=== PATIENT | male | born 1990 ===

== ENCOUNTER 2021-03-20 19:26 | Emergency (ER) | payer SELFPAY ==
[2021-03-20] MEDS ORDERED: diphenhydrAMINE 25 MG/10 ML ORAL LIQUID PO ONE (19:37)
[2021-03-20] MEDS ORDERED: diphenhydrAMINE 25 MG CAP PO ONE (19:39)
[2021-03-20] MEDS ORDERED: diphenhydrAMINE 25 MG/10 ML ORAL LIQUID ONE (19:45)
[2021-03-20] MEDS ORDERED: FAMOTIDINE 20 MG/2 ML INJ IV ONE (19:55)
[2021-03-20] MEDS ORDERED: ONDANSETRON 4 MG/2 ML INJ IV ONE (19:55)
[2021-03-20] MEDS ORDERED: diphenhydrAMINE 50 MG/ML VIAL IV ONE (19:55)
[2021-03-20] MEDS ORDERED: methylPREDNISolone Sod Succinate 125 MG/2 ML INJ IV ONE (19:56)
[2021-03-20] MEDS ORDERED: EPINEPHrine/PF 1 MG/1 ML INJ IM ONE (19:57)
--- NOTE | 2021-03-20 21:13 | Emergency Department Report ---
ED Allergic Reaction HPI - General Chief complaint: Allergic Reaction Stated complaint: ALLERGIC REACTION Source: patient Mode of arrival: Ambulatory Limitations: Language Barrier - History of Present Illness Initial Comments: Patient is a 30-year-old male with no past medical history presents to the ED with complaint of acute onset persistent diffuse itchy erythematous maculopapular urticarial rashes throughout with mild upper and lower lip swelling and throat tightness for the last 2 hours after being bitten by bees while mowing his lawn about 2 hours ago. Patient states that he was mowing the lawn when accidentally he may have stumbled upon a beehive and a few bees stung him on his thighs and subsequent developed diffuse itchy erythematous urticarial rashes with sweating and throat tightness. Patient states that he did not take any medication prior to arrival in the ED. Patient denies dizziness, syncope, chest pain, shortness of breath, swollen tongue, swollen throat, dysphagia, dysphonia, nasal and sinus congestion, cough, wheezing, nausea, vomiting, diarrhea or abdominal pain, fever and chills. MD Complaint: allergic reaction, hives, facial swelling, other (Tingling sensation on the throat) -: Sudden, hour(s) (2) Exposure: insect bite Symptoms: rash, itching, facial swelling, lip swelling, hoarseness. denies: difficulty swallowing, difficulty breathing, orolingual swelling, syncopy, dizziness, nausea, vomiting, other, abdominal pain Severity: severe Treatment Prior to Arrival: none Previous Allergy History: none - Related Data Previous Rx's Medication Instructions Recorded Last Taken Type Famotidine [Pepcid] 20 mg PO BID #60 tablet 03/20/21 Unknown Rx Prednisone [predniSONE 10 mg 10 mg PO .TAPER #21 tab.ds.pk 03/20/21 Unknown Rx (6-Day Pack, 21 Tabs)] diphenhydrAMINE [Benadryl CAP] 50 mg PO Q8HR PRN #30 capsule 03/20/21 Unknown Rx Allergies Allergy/AdvReac Type Severity Reaction Status Date / Time No Known Allergies Allergy Unverified 03/20/21 20:00 ED Review of Systems ROS: Stated complaint: ALLERGIC REACTION Other details as noted in HPI Constitutional: denies: chills, fever Eyes: denies: eye pain, eye discharge, vision change ENT: other (Mild facial and lip swelling and tightness; throat tightness). denies: ear pain, throat pain Respiratory: denies: cough, shortness of breath, wheezing Cardiovascular: denies: chest pain, palpitations Endocrine: no symptoms reported Gastrointestinal: denies: abdominal pain, nausea, vomiting, diarrhea Genitourinary: denies: urgency, dysuria Musculoskeletal: denies: back pain, joint swelling, arthralgia Skin: rash (Diffuse itchy erythematous maculopapular urticarial rashes), change in color, pruritus. denies: lesions Neurological: denies: headache, weakness, paresthesias Psychiatric: denies: anxiety, depression Hematological/Lymphatic: denies: easy bleeding, easy bruising ED Past Medical Hx - Medications Home Medications: Home Medications Medication Instructions Recorded Confirmed Last Taken Type Famotidine [Pepcid] 20 mg PO BID #60 tablet 03/20/21 Unknown Rx Prednisone [predniSONE 10 mg 10 mg PO .TAPER #21 tab.ds.pk 03/20/21 Unknown Rx (6-Day Pack, 21 Tabs)] diphenhydrAMINE [Benadryl CAP] 50 mg PO Q8HR PRN #30 capsule 03/20/21 Unknown Rx ED Physical Exam - General Limitations: Language Barrier General appearance: alert, in no apparent distress - Head Head exam: Present: atraumatic, normocephalic, normal inspection - Eye Eye exam: Present: normal appearance, PERRL, EOMI Pupils: Present: normal accommodation - ENT ENT exam: Present: normal orophraynx, mucous membranes moist, TM's normal bilaterally, normal external ear exam, other (Mild upper and lower lip swelling) - Neck Neck exam: Present: normal inspection, full ROM - Respiratory Respiratory exam: Present: normal lung sounds bilaterally. Absent: respiratory distress, wheezes, rales, rhonchi, stridor, chest wall tenderness, accessory muscle use, decreased breath sounds, prolonged expiratory - Cardiovascular Cardiovascular Exam: Present: regular rate, normal rhythm, normal heart sounds. Absent: systolic murmur, diastolic murmur, rubs, gallop - GI/Abdominal GI/Abdominal exam: Present: soft, normal bowel sounds. Absent: tenderness, guarding, hyperactive bowel sounds, hypoactive bowel sounds, organomegaly - Extremities Exam Extremities exam: Present: normal inspection, full ROM, normal capillary refill - Back Exam Back exam: Present: normal inspection, full ROM. Absent: tenderness, CVA tenderness (R), CVA tenderness (L), muscle spasm, paraspinal tenderness, vertebral tenderness - Neurological Exam Neurological exam: Present: alert, oriented X3, CN II-XII intact, normal gait, reflexes normal - Psychiatric Psychiatric exam: Present: normal affect, normal mood - Skin Skin exam: Present: warm, dry, intact, rash (Diffuse erythematous maculopapular urticarial rashes), erythema, urticaria ED Course Vital Signs 03/20/21 03/20/21 19:32 21:24 Temperature 97.4 F L Pulse Rate 96 H 94 H Respiratory 16 16 Rate Blood Pressure 135/80 Blood Pressure 109/57 [Left] O2 Sat by Pulse 96 98 Oximetry ED Medical Decision Making - Medical Decision Making This is a 30-year-old male with no past medical history presents to the ED with complaint of acute onset persistent diffuse itchy erythematous maculopapular urticarial rashes throughout with mild upper and lower lip swelling and throat tightness for the last 2 hours after being bitten by bees while mowing his lawn about 2 hours ago. Patient states that he was mowing the lawn when accidentally he may have stumbled upon a beehive and a few bees stung him on his thighs and subsequent developed diffuse itchy erythematous urticarial rashes with sweating and throat tightness. Patient states that he did not take any medication prior to arrival in the ED. in the ED, patient is alert and oriented x3 and is not in distress, anxious but hemodynamically stable in triage. Patient received treatment for acute allergic reaction with Solu-Medrol 125 mg IV x1, Benadryl 50 mg, Pepcid 20 mg and epinephrine 0.5 mg intramuscular injection. Patient was observed in the ED and monitored for 2 hours for any worsening symptoms. On reevaluation, patient's hives and itching resolved, the lip swelling and throat tightness also resolved. Patient's vital signs are stable on reevaluation. Patient was therefore discharged home on medications including steroids Dosepak, Benadryl and Pepcid and was advised to follow-up with his primary care physician in 3 to 5 days for reevaluation. Patient was also advised to return to the ED immediately if symptoms get worse. - Differential Diagnosis Anaphylaxis; insect bite allergy; allergic reaction; hives; urticaria; Critical care attestation.: If time is entered above; I have spent that time in minutes in the direct care of this critically ill patient, excluding procedure time. ED Disposition Clinical Impression: Allergic reaction to insect bite, Acute urticaria, Itching with irritation Acute allergic reaction Qualifiers: Encounter type: initial encounter Qualified Code(s): T78.40XA - Allergy, unspecified, initial encounter Disposition: TO HOME OR SELFCARE Is pt being admited?: No Does the pt Need Aspirin: No Condition: Stable Instructions: Allergies, Adult, [id number], Insect Bite, Adult, [id number], Hives, [id number], Rash, Adult, [id number] Additional Instructions: Take medications with food, drink plenty of fluids and follow-up with your primary care physician in 3 to 5 days for reevaluation. Return to the ED immediately if your symptoms get worse. Prescriptions: diphenhydrAMINE [Benadryl CAP] 50 mg PO Q8HR PRN #30 capsule PRN Reason: Itching Famotidine [Pepcid] 20 mg PO BID #60 tablet Prednisone [predniSONE 10 mg (6-Day Pack, 21 Tabs)] 10 mg PO .TAPER #21 tab.ds. pk Referrals: [facility] [Provider Group] - 3-5 Days Forms: Work/School Release Form(ED) Time of Disposition: 21:19 Print Language: OCCITAN
[2021-03-20 21:25] VITALS: BP 109/57
== END 2021-03-20 23:14 | disposition home or self-care (01) ==
LOC: ED 19:26
DX: T63.481A Toxic effect of venom of other arthropod, accidental (unintentional), initial encounter (principal); L50.9 Urticaria, unspecified; Y92.89 Other specified places as the place of occurrence of the external cause
CPT/HCPCS: 96372; 96374; 96375; 99282; J0171; J1200; J2405; J2930; Q0163